=== PATIENT | female | born 1945 | race Caucasian/White ===

== ENCOUNTER 2020-11-18 06:31 | Emergency (ER) | payer MEDICARE ==
[2020-11-18] MEDS ORDERED: Ketorolac Tromethamine 60 MG/2 ML VIAL ONE (07:35)
[2020-11-18] MEDS ORDERED: HYDROcodone/Acetaminophen 5/325 mg Tablet ONE (07:35)
== END 2020-11-18 08:30 | disposition home or self-care (01) ==
LOC: NAV ERS 06:31
DX: M54.32 Sciatica, left side (principal); G89.29 Other chronic pain; E78.5 Hyperlipidemia, unspecified; I10 Essential (primary) hypertension; Z79.899 Other long term (current) drug therapy
CPT/HCPCS: 96372; J1885